=== PATIENT | male | born 1965 | race Caucasian/White ===

== ENCOUNTER → 2018-08-24 | Outpatient (CLI) | payer OTHER ==
[2018-08-24 10:36] LABS: HCT 50.6 % (39.0-53.0); HGB 16.6 gm/dL (13.0-17.5); MCH 33.7 pg (25.0-35.0); MCHC 32.7 g/dL (31.0-37.0); MCV 102.9 fL (80.0-100.0); Macrocytosis Slight; Mean Platelet Volume 7.6; Platelet Count 284 k/uL (150-450); RBC 4.91 m/uL (4.30-5.90); RDW 12.1 % (11.5-15.5); WBC 3.6 k/uL (3.8-10.6)
[2018-08-24 10:37] LABS: Appearance,Urine Clear (Clear); Bilirubin,Urine Negative (Negative); Blood,Urine Negative (Negative); Color,Urine Yellow; Glucose,Urine (UA) Negative (Negative); Ketones,Urine Negative (Negative); Leukocyte Esterase,Urine Negative (Negative); Nitrite,Urine Negative (Negative); PH, Urine 5.5 (5.0-8.0); Protein,Urine Negative (Negative); Specific Gravity,Urine 1.012 (1.001-1.035); Urobilinogen,Urine <2.0 mg/dL (<2.0)
[2018-08-24 10:47] LABS: INR 1.1 (<1.2); Partial Thromboplastin Time 25.3 sec (22.0-30.0); Prothrombin Time 10.6 sec (9.0-12.0)
[2018-08-24 10:54] LABS: ALT 19 U/L (21-72); AST 28 U/L (17-59); Alkaline Phosphatase 47 U/L (38-126); Anion Gap 9 mmol/L; Blood Urea Nitrogen 11 mg/dL (9-20); Calcium 9.6 mg/dL (8.4-10.2); Carbon Dioxide 26 mmol/L (22-30); Chloride 100 mmol/L (98-107); Glucose 87 mg/dL (74-99); Sodium 135 mmol/L (137-145); Total Bilirubin 0.4 mg/dL (0.2-1.3); Total Protein 7.3 g/dL (6.3-8.2)
== END | disposition home or self-care (01) ==
LOC: LABPAT 09:11
PROVIDERS: ATTEND Orthopaedic Surgery
DX: Z01.818 Encounter for other preprocedural examination (principal); Z01.812 Encounter for preprocedural laboratory examination
CPT/HCPCS: 36415; 80053; 81003; 85027; 85610; 85730; 87070; 93005

== ENCOUNTER 2021-10-04 07:11 | Day surgery (SDC) | payer OTHER ==
[2021-09-27 14:21] VITALS: BMI 19.1
[2021-10-04] MEDS ORDERED: LACTATED RINGERS 1,000 ML IV SCH (07:30)
[2021-10-04 07:51] VITALS: TEMP 98
--- NOTE | 2021-10-04 08:42 | P.PCN ---
Date of Procedure: 10/04/21 Description of Procedure: Procedure: 1. Lumbar puncture for CSF collection PREOPERATIVE DIAGNOSIS: Rule out multiple sclerosis POSTOPERATIVE DIAGNOSIS: Rule out multiple sclerosis SURGEON: Tj Gooden ANESTHESIA: Local with 1% lidocaine, and IV sedation : None EBL: None. Specimen removed: 3 mL of CSF in each collecting tube X4 PROCEDURE INDICATION: The patient had history of abnormal MRI of the brain, to rule out multiple sclerosis . Consulted for lumbar puncture for CSF collection send it for analysis. PROCEDURE DESCRIPTION: The patient was seen and identified. Risks, benefits, complications, and alternatives were discussed with the patient. The patient ag khloe to proceed with the procedure and signed the consent, and vital signs were stable. Patient was taken to the procedure area, and time out was completed. The patient was placed in right lateral position on procedure. . The lumbosacral area was prepped and draped in the usual sterile fashion. Critical pause was taken. Vital signs were closely monitored during the procedure. Posterior superior iliac crest landmarks was identified . The midline lumbar space also identified. Approximately at the level of L4-L5 interspinous space, skin and deeper tissues were localized with 3 mL of 1% lidocaine. Using a 22 gauge 3.5 spinal needle entered into subarachnoid space, with 1 attempt. Opening CSF pressure was 8 cm, Clear CSF came out of the spinal needle. 3 mL of CSF fluid collected in each tube 4. Closing CSF pressure was 7 cm . Needle was withdrawn intact, skin was cleansed, and bandages were applied. COMPLICATIONS: None. DISPOSITION / PLANS: The patient was placed in a supine position and transferred to the recovery area in a stable condition for observation. Patient was discharged from the recovery room after meeting discharge criteria. Home discharge instructions given to the patient by the staff. The patient was reexamined prior to discharge. Opening CSF pressure was 8 cm Closing CSF pressure was 7 cm
[2021-10-04 08:46] LABS: Total Protein 7.8 g/dL (6.3-8.2)
[2021-10-04] MEDS ORDERED: IV FLUID CONTINUATION 1,000 ML IV ONE ×2 (08:52)
[2021-10-04 08:57] VITALS: RESP 16
[2021-10-04 09:17] VITALS: BP 162/84; PULSE 68
[2021-10-04 12:02] LABS: Glucose,CSF 58 mg/dL (40-70); Total Protein,CSF 57 mg/dL (12-60)
[2021-10-04 14:15] LABS: Anti-DNA, DS unit <1.0 IU/mL; Anti-Smith Ab Interp NEGATIVE (NEGATIVE); DNA Double-Stranded NEGATIVE (NEGATIVE)
[2021-10-04 14:49] LABS: Appearance,CSF Clear; CSF Tube Number 3; Nucleated Cells, CSF 0 u/L (0-5); Red Blood Cell,CSF 0 u/L (0-10)
[2021-10-08 11:49] LABS: APTT 41 Sec(s) (<43); Dilute Russell Viper Venom 37 Sec(s) (<44)
[2021-10-09 11:32] LABS: IgG - CSF 3.5 mg/dL (0.0 - 3.4); IgG/Albumin Index (CSF) 0.42 (0.00 - 0.77)
== END 2021-10-04 09:46 | disposition home or self-care (01) ==
LOC: ORPAIN 07:11
DX: R93.0 Abnormal findings on diagnostic imaging of skull and head, not elsewhere classified (principal)
CPT/HCPCS: 62270; 82040; 82042; 82784; 82945; 82947; 83873; 83916; 84155; 84157; 85613; 85730; 86038; 86225; 86235; 86592; 86618; 88108; 89050